=== PATIENT | male | born 1945 ===

== ENCOUNTER 2024-07-28 14:08 | Observation (INO) | payer MEDICARE, OTHER, SELFPAY ==
[2024-07-28] VITALS (17 sets, daily range): BP systolic 121–168; BP diastolic 53–128; PULSE 61–65; BMI 24.8; BMI 25.2
--- NOTE | 2024-07-28 10:30 | ED.GENMED ---
History of Present Illness
General
Chief Complaint: Dizziness
Source: patient and spouse
Exam Limitations: none
Time Seen by Provider: 07/28/24 10:17
Nursing documentation reviewed up to this point in time: agreed with
History of Present Illness
History of Present Illness:
The patient is a very pleasant 79-year-old man who reports that yesterday he experienced sudden onset of dizziness and difficulty walking. Patient reports the symptoms seem worse when he changes positions such as sitting to standing up. He reports
his symptoms were associated with nausea and vomiting. He denies headache, sore throat and fever. He denies vision changes. He reports he has never had dizziness like this before. Patient reports that it is not reproduced when he moves his head
from [id number]. Patient states he still feels dizzy and slightly nauseous. He denies chest pain or shortness of breath. His reports he recently had significant medication changes and is not sure if this is related.
Past History
Past History
ED Past Medical History: HTN and NIDDM
ED Past Surgical History: Other
Social History
Tobacco: Non-smoker
Alcohol: Other
Drug: None
Personal:
Living: with family
Employment: Retired
Family History
Family History: Other
Review of Systems
Review of Systems
Allergies reviewed?: Yes
All Other Systems: ROS reviewed and negative except as documented in HPI and ROS
Constitutional: Reports no symptoms
EENT: Reports no symptoms
Respiratory: Reports no symptoms
Cardiac: Reports no symptoms
ABD/GI: Reports nausea and vomiting
: Reports no symptoms
Musculoskeletal: Reports no symptoms
Skin: Reports no symptoms
Neurological: Reports dizzy
Endocrine: Reports no symptoms
Hematologic/Lymphatic: Reports no symptoms
Psychiatric: Reports no symptoms
Phy Exam
Physical Exam
Physical Exam:
Physical Exam
General: no apparent distress, not acutely ill
Neck: supple. no meningeal signs. normal psoterior pharynx
Heart: Sounds irregular.
Lungs: no acute respiratory distress. clear bilaterally
Abdomen: normal bowel sounds. not tender. no CVAT
Neuro: alert and oriented x 3. no focal neurological deficits. 5 out of 5 strength in all extremities. Normal [id number].
Skin: no rash
Psychiatric: well kept. interactive and cooperative
Extremities: no edema. no calf tenderness. negative homans. good distal pulses
Course
Orders/Labs/Results
Orders:
Orders
07/28/24 09:53
Electrocardiogram (*1) Urgent
Reason for Study: Vertigo / Dizzy
EKG- Treatment ONCE
07/28/24 10:25
CT Head W/o Iv Contrast Urgent
Comment:
Reason For Exam: dizziness
07/28/24 10:36
Complete Blood Count/With Diff Urgent
Comprehensive Metabolic Panel Urgent
Magnesium Urgent
Troponin I Urgent
07/28/24 11:15
0.9% Sodium Chloride 1000 ml [Nss] 1,000 ml IV BOLUS
Abnormal Lab Results
07/28/24
10:36
MCH 31.5 H pg
(27.0-31.0)
MPV 11.2 H fL
(7.4-10.4)
Absolute Monos (auto) 0.7 H 10^3/uL
(0.1-0.6)
Neutrophils % 76.7 H %
(42.2-75.2)
Lymphocytes % 13.7 L %
(20.5-51.1)
BUN 27 H mg/dl
(9-20)
Glucose 194 H mg/dl
(70-99)
07/28/24 10:36
07/28/24 10:36
Vital Signs
Initial and Last Documented VS:
Initial Vital Signs
Temp Pulse Resp BP Pulse Ox
97.5 F 34 18 142/62 98
07/28/24 09:58 07/28/24 09:58 07/28/24 09:58 07/28/24 09:58 07/28/24 09:58
Last Documented Vital Signs
Temp Pulse Resp BP Pulse Ox
98.0 F 67 18 131/82 96
07/28/24 10:04 07/28/24 11:00 07/28/24 11:00 07/28/24 11:00 07/28/24 11:00
MDM/Problems Addressed
Differential Diagnosis Includes:
Benign positional vertigo, orthostatic dizziness, CVA, symptomatic bradycardia
MDM/Problems Addressed:
Patient presents with acute dizziness, nausea and vomiting
Chronic conditions affecting care: HTN
Acute Exacerbation and/or Progression of Chronic Illness:
Given patient's history of hypertension, he is at increased risk of stroke
Acute Exacerbation and/or Progression of Chronic Illness: HTN
*Radiology
Radiology exam reviewed: radiology read reviewed
*Pulse Oximetry
Patient hypoxic: no
*EKG
Interpreted by ED Provider?: Yes
Interpretation: abnormal
Comparison EKG: no comparison EKG present
Rate: normal
Rhythm: sinus and PVC's
[place]: normal axis
Interval: normal interval
QRS Pattern: left bundle branch block (Partial left bundle branch block)
Ischemia: non-specific ST changes
*Rn Critical Care Interpretation
Rate: bradycardiac
Interpretation: abnormal
Rhythm: sinus and PVC's
*Critical Care Note
Total Time (30-74mins, 75-104mins- exclusive of procedures): Not Applicable
Data Reviewed
Source: patient and spouse
Patient Management
Discussion with other providers: Hospitalist
Escalation/DeEscalation of care consider admission/obs:
Patient may have vertigo, however, patient has frequent episodes of bradycardia in the 30s. Patient may have symptomatic bradycardia
ED Attending Note
-
Portions of this chart may have been created with voice recognition software.� Occasional wrong word or��sound alike� substitutions may have occurred due to the inherent limitations of voice recognition software.
Discharge Plan
Departure
Patient Disposition: Admit
Date of Disposition: 07/28/24
Time of Disposition: 12:05
Admit to: Telemetry
Presentation/result/management discussed w/ accepting MD/DO: Hospitalist
Discharge Problem:
Acute dizziness, Symptomatic bradycardia
Prescriptions:
No Action
acetaminophen 325 mg Tablet
650 mg PO Q6H PRN (Reason: Mild pain)
fluorouracil 5 % Cream
1 applic TOPICAL BID
omeprazole 40 mg Capsule,Delayed Release(Dr/Ec)
40 mg PO DAILY
triamcinolone acetonide [Kenalog] 0.1 % Cream
1 applic TOPICAL DAILY
Rx Instructions:
UP TO 15 DAYS/MONTH
ascorbic acid (vitamin C) 500 mg Tablet
500 mg PO DAILY
tamsulosin 0.4 mg Capsule
0.4 mg PO DAILY
metoprolol succinate 25 mg Tablet Extended Release 24 Hr
25 mg PO HS
lisinopril 40 mg Tablet
40 mg PO DAILY
Multivitamin 50 Plus Tablet
1 tab PO DAILY
dutasteride 0.5 mg Capsule
0.5 mg PO DAILY
rosuvastatin 20 mg Tablet
20 mg PO DAILY
Eliquis 5 mg Tablet
5 mg PO BID
Jardiance 25 mg Tablet
25 mg PO DAILY
Referrals:
Meaghan Dawn MD [Family Provider] -
Interventions
Interventions:
*Risk Screen - Suicide Last Done: 07/28/24 10:04
*General Assessment Last Done: 07/28/24 10:28
*Neglect/Abuse Screening Last Done: 07/28/24 10:04
ED- Fall Risk Assessment Last Done: 07/28/24 10:28
*ED COVID-19 Vaccine History Last Done: 07/28/24 10:28
ED- Neurological Assessment Last Done: 07/28/24 10:28
ED- Cardiac Assessment Last Done: 07/28/24 10:28
ED Swallowing Screen Last Done: 07/28/24 11:10
Discharge Date and Time
Print Language: BOLIVIAN
[2024-07-28 10:48] LABS: % Basophils 0.6 % (0-2); % Eosinophils 0.6 % (0-6); % Immature Granulocytes 0.4 % (0-0.5); % Lymphocytes 13.7 % (20.5-51.1); % Neutrophils 76.7 % (42.2-75.2); Absolute Basophils 0.1 10^3/uL (0-0.2); Absolute Eosinophils 0.1 10^3/uL (0-0.7); Absolute Lymphocytes 1.2 10^3/uL (1.2-3.4); Absolute Monocytes 0.7 10^3/uL (0.1-0.6); Absolute Neutrophils 6.5 10^3/uL (1.4-6.5); Hematocrit 47.5 % (39.0-52.0); Hemoglobin 16.2 g/dL (13.0-18.0); Mean Corp Hgb Conc. 34.1 g/dL (33.0-37.0); Mean Corpuscular Hgb 31.5 pg (27.0-31.0); Mean Corpuscular Volume 92.2 fL (80.0-94.0); Mean Platelet Volume 11.2 fL (7.4-10.4); Nucleated Red Blood Cells % 0 % (-); Platelet Count 135 10^3/uL (130-400); Red Blood Cell Count 5.15 10^6/uL (4.70-6.10); Red Cell Dist. Width 13.5 % (11.5-14.5); White Blood Cell Count 8.5 10^3/uL (4.8-10.8)
[2024-07-28 11:01] LABS: ALT (SGPT) 20 U/L (0-50); AST (SGOT) 22 U/L (17-59); Albumin 4.4 g/dl (3.5-5.0); Alkaline Phosphatase 72 U/L (38-126); Blood Urea Nitrogen 27 mg/dl (9-20); Calcium 9.9 mg/dl (8.4-10.2); Carbon Dioxide 24 mmol/L (22-30); Chloride 103 mmol/L (98-107); Estimated Creatinine Clearance 59 ml/min; Glucose 194 mg/dl (70-99); Magnesium 1.6 mg/dl (1.6-2.3); Potassium 4.1 mmol/L (3.5-5.1); Sodium 143 mmol/L (135-145); Total Protein 6.9 g/dl (6.3-8.2); eGFR > 60.00
[2024-07-28 11:12] LABS: Troponin I 0.012 ng/ml
[2024-07-28] MEDS: NSS 1000 IV (11:50)
--- NOTE | 2024-07-28 13:53 | HPS.HSE ---
Addendum entered and electronically signed by Ron Fonseca MD 07/29/24 13:52:
I personally performed a history and physical exam of the patient and discussed management with the resident. I reviewed the resident's note and agree with the documented findings and plan of care HPI/CC.
Patient is 79-year-old male with past medical history of atrial fibrillation on Eliquis, essential hypertension, [id number]-wtfrehmke respirators came to ER with new onset of dizziness which has been going on for last 24 to 48 hours. Patient had
associated nausea and vomiting. Denies of having any previous episodes of similar issues in the past. No reported history of ear injury/infection/sore throat. Denies any associated double vision/ataxia. No previous history of stroke. Patient
has been compliant with home medication.
HEENT: No pallor, cyanosis, or jaundice. Throat clear.
NECK: Supple. No JVD.
RESPIRATORY: Lungs clear to auscultation.
CVS: S1, S2 normal. RRR. No murmur, rub or gallop.
ABDOMEN: Soft, non-tender. No distension. BS+/normal.
EXTREMITIES: No peripheral cyanosis or edema.
LICENSED MASSAGE THERAPIST: AOx3. No focal deficits.
Dizziness
Presumed vertigo
-Patient have history of sensorineural hearing loss and can have possible vertigo, BPPV is another differential diagnosis
-No nystagmus/double vision, no other neurological signs to suspect true posterior circulation stroke
-Patient had some episode of bradycardia, hold metoprolol for now. monitor on telemetry and will see if clinically correlate with dizziness episode
-Check orthostatic vitals as well
-Provide meclizine/empiric IV steroids
-PT OT evaluation with vestibular assessment in the morning
NIDDM
-Maintain on home regimen of Janumet
-Add insulin sliding scale/Accu-Chek if per glucose uncontrolled with steroids
Full code
Original Note:
Family Physician
-
Family Physician: Meaghan Dawn
Chief Complaint
-
Dizziness
History of Present Illness
This is a 79-year-old male patient past medical history of hypertension, NIDDM, BPH, foot drop and history of atrial fibrillation s/p ablation who presents to the ED with concerns of dizziness and nausea. His dizziness started yesterday morning
when he got up from bed and walked around. His dizziness lasted for around 1 minute and was associated with nausea and vomiting where he had 2 episodes of vomiting with no blood thus far. He also felt unsteady while walking due to the dizziness but
denied any falls. He states that his dizziness gets worse when he goes from a sitting to standing up position. He denies any vision changes, loss of consciousness, tinnitus or URTI symptoms (did have COVID 3 weeks ago). He also denies any chest
pain, SOB or palpitations.
He recently moved to the area and states that he was lifting heavy boxes the day prior. He also states that he recently saw his PCP last week who made changes to his diabetic medication.
His EKG in the ED showed multiple PVCs. He was initially bradycardic in the ED with HR in the 30s, but at time of examination heart rate was stable in the 70s.
He follows with business continuity director .
Medical History
Past Medical History
Past Medical History: Reports Arrhythmia (Atrial fibrillation), HTN, NIDDM and Other (Foot drop, cyst on kidney)
Past Surgical History: Reports Other (Ablation 5 years ago for A-fib)
Social History
Tobacco: Non-smoker
Drug: None
Personal:
Living: With Family
Family History
Family History: CAD
Allergies / Home Medications
Allergies reflects when Allergies were last updated in [facility].
Home Medications with original date entered in [facility]
Allergy/Medication List:
Allergies
Allergy/AdvReac Type Severity Reaction Status Date / Time
No Known Allergies Allergy Verified 07/28/24 10:08
Home Medications
apixaban 5 mg tablet (Eliquis) 5 mg PO BID 07/28/24
ascorbic acid (vitamin C) 500 mg tablet 500 mg PO DAILY 07/28/24
cyanocobalamin (vitamin B-12) 500 mcg tablet 500 mcg PO DAILY 07/28/24
dutasteride 0.5 mg capsule 0.5 mg PO DAILY 07/28/24
empagliflozin 25 mg tablet (Jardiance) 25 mg PO DAILY 07/28/24
lisinopril 40 mg tablet 40 mg PO DAILY 07/28/24
metoprolol succinate 25 mg tablet,extended release 24 hr 25 mg PO HS 07/28/24
szyvygfznoeu-hrkdnezi-auahsz tablet (Multivitamin 50 Plus tablet) 1 tab PO DAILY 07/28/24
omeprazole 40 mg capsule,delayed release 40 mg PO DAILY 07/28/24
rosuvastatin 20 mg tablet 20 mg PO QPM 07/28/24
sitagliptin phos 50 mg-metformin ER 1,000 mg tablet,extend rel 24h mp (Janumet XR) 2 tab PO DAILY 07/28/24
tamsulosin 0.4 mg capsule 0.4 mg PO DAILY 07/28/24
Review of Systems
-
Constitutional: Reports No Symptoms
EENT: Reports No Symptoms
Cardiac: Reports No Symptoms
Abdomen/GI: Reports Nausea
Skin: Reports No Symptoms
Neurological: Reports Dizzy
Psych: Reports No Symptoms
Physical Exam
Vital Signs
Vital Signs
Temp Pulse Resp BP Pulse Ox
98.0 F 64 17 121/65 95
07/28/24 10:04 07/28/24 13:30 07/28/24 13:30 07/28/24 13:30 07/28/24 13:30
Physical Exam
General: No Apparent Distress
HEENT: NormoCephalic
Respiratory: Clear
Cardiac: S1/S2 and Regular Rhythm
GI: Soft, Non Tender and Non Distended
Musculoskeletal: No Clubbing and No Edema
Skin: Warm and Dry
Neuro: Awake, Alert and Oriented
Psych: Calm
Laboratory Results
-
07/28/24 10:36
07/28/24 10:36
Laboratory Results
Total Bilirubin 1.0 mg/dl (0.2-1.3) 07/28/24 10:36
AST 22 U/L (17-59) 07/28/24 10:36
ALT 20 U/L (0-50) 07/28/24 10:36
Alkaline Phosphatase 72 U/L (38-126) 07/28/24 10:36
Troponin I 0.012 ng/ml 07/28/24 10:36
Impression/Plan
-
IMPRESSION: This is a 79-year-old male patient past medical history of hypertension, NIDDM, BPH, foot drop and history of atrial fibrillation s/p ablation who presents to the ED with concerns of dizziness, vomiting and nausea. His HR in 30s in the
ED and ER EKG showed multiple PVCs.
ASSESSMENT:
Dizziness
Bradycardia
Conditions MANAGER PROVIDER RELATIONS:
HTN
HLD
BPH
Foot drop
Hx of atrial fibrillation s/p ablation
PLAN:
#Dizziness possibly due to BPPV vs labyrinthitis vs hypoglycemia
� ER EKG: Multiple PVCs, incomplete left bundle block
� CT head: Mild atrophy, minimal periventricular small vessel ischemic disease
�Physical therapy for vestibular assessment
� Dexamethasone 4 Mg every 12 ordered for possible vestibular etiology
� Meclizine as needed
� Orthostatic vitals Q8H
#Bradycardia
� Hold metoprolol
� Order TSH, T3, T4
- Admit for observation for telemetry
#Hx of Atrial Fibrillation s/p ablation
- Continue Eliquis
#Essential HTN
� Continue lisinopril
#Hyperlipidemia
� Continue rosuvastatin
#NIDDM
� Continue Jardiance, Janumet
#BPH
� Continue Flomax, dutasteride
DVT PPx: SCDs
Full code
[2024-07-28 17:05] LABS: Free T4 1.04 ng/dl (0.78-2.19)
[2024-07-28 17:19] LABS: TSH 0.81 uIU/ml (0.47-4.68)
[2024-07-28] MEDS: CRESTOR 20 MG PO (18:07)
[2024-07-28] MEDS: DECADRON 4 MG PO (19:43)
[2024-07-28] MEDS: ELIQUIS 5 MG PO (19:43)
[2024-07-28 21:53] LABS: Hepatitis C Antibody Negative (Negative)
[2024-07-29 02:57] VITALS: BP 163/84
[2024-07-29 06:12] LABS: Blood Urea Nitrogen 25 mg/dl (9-20); Calcium 9.4 mg/dl (8.4-10.2); Carbon Dioxide 22 mmol/L (22-30); Chloride 104 mmol/L (98-107); Estimated Creatinine Clearance 72 ml/min; Glucose 182 mg/dl (70-99); Potassium 4.5 mmol/L (3.5-5.1); Sodium 140 mmol/L (135-145); eGFR > 60.00
[2024-07-29 06:29] LABS: Hematocrit 44.2 % (39.0-52.0); Hemoglobin 15.2 g/dL (13.0-18.0); Mean Corp Hgb Conc. 34.4 g/dL (33.0-37.0); Mean Corpuscular Hgb 31.4 pg (27.0-31.0); Mean Corpuscular Volume 91.3 fL (80.0-94.0); Mean Platelet Volume 11.1 fL (7.4-10.4); Platelet Count 126 10^3/uL (130-400); Red Blood Cell Count 4.84 10^6/uL (4.70-6.10); Red Cell Dist. Width 13.3 % (11.5-14.5); White Blood Cell Count 6.2 10^3/uL (4.8-10.8)
[2024-07-29 07:20] VITALS: BP 138/90; BP 148/71; BP 167/87; PULSE 47; PULSE 60; PULSE 68
--- NOTE | 2024-07-29 07:52 | W.PN.HOSP.TC ---
Addendum entered and electronically signed by Ron Fonseca MD 07/29/24 13:53:
I saw and evaluated the patient. I reviewed the resident�s note and agree with findings and plan as documented in the resident�s note.
Patient have vertigo symptoms from BPPV
Positive [place]-Hallpike maneuver by physical therapy assessment
Patient significantly better after Cedric's maneuver
Patient able to walk around without significant issues
Patient instructed to use meclizine as needed for symptomatic care
Patient to follow-up with vestibular therapy center for further evaluation and treatment as needed
Original Note:
Today's Communication/Plan
-
Cardiology outpatient follow up
Vestibular Therapy outpatient
Restart metoprolol
Discharge today
Assessment / Plan
Assessment / Plan
IMPRESSION: This is a 79-year-old male patient past medical history of hypertension, NIDDM, BPH, foot drop and history of atrial fibrillation s/p ablation who presents to the ED with concerns of dizziness, vomiting and nausea. His HR in 30s in the
ED and ER EKG showed multiple PVCs.
ASSESSMENT:
Dizziness
Bradycardia
Conditions FORK TRUCK DRIVER:
HTN
HLD
BPH
Foot drop
Hx of atrial fibrillation s/p ablation
PLAN:
#Dizziness possibly due to BPPV vs labyrinthitis vs hypoglycemia
� ER EKG: Multiple PVCs, incomplete left bundle block
� CT head: Mild atrophy, minimal periventricular small vessel ischemic disease
� Physical therapy: + for BPPV to R side with Hallpike and Cedric maneuver performed with success
-Vestibular therapy outpatient recommended
� Discontinue Dexamethasone
� Meclizine as needed
� Orthostatic vitals Q8H- had one out of two readings suggestive of orthostatic hypotension but not likely diagnosis
- Discharge home today
#Bradycardia
� Hold metoprolol, restart on discharge
� Normal TSH, T4, very mildly low T3
-Advised cardiology f/u after discharge
#Hx of Atrial Fibrillation s/p ablation
- Continue Eliquis
#Essential HTN
� Continue lisinopril
#Hyperlipidemia
� Continue rosuvastatin
#NIDDM
� Continue Jardiance, Janumet
-Managed with insulin sliding scale
#BPH
� Continue Flomax, dutasteride
DVT PPx: SCDs
Full code
Anticipated Discharge: Today
Subjective/Interval History
-
Date of Service: July 29, 2024
Patient still continues to feel mildly nauseous but does have less dizziness after taking meclizine.
Objective Data
-
Labs:
Laboratory Results
07/29/24
05:28
WBC 6.2
Hgb 15.2
Hct 44.2
Plt Count 126 L
Sodium 140
Potassium 4.5
Chloride 104
Carbon Dioxide 22
BUN 25 H
Creatinine 0.9
Glucose 182 H
Calcium 9.4
Vital Signs:
Vital Signs
Temp Pulse Resp BP Pulse Ox
97.6 F 60 16 163/84 96
07/29/24 02:57 07/29/24 02:57 07/29/24 02:57 07/29/24 02:57 07/29/24 02:57
I&O
07/28/24 07/29/24 07/30/24
06:59 06:59 06:59
Intake Total 240 / 240
Balance 240 / 240
Review of Systems
-
All other systems: Reviewed and negative
Physical Exam
-
General: No Apparent Distress
HEENT: Normocephalic
Respiratory: Clear to Auscultation
Cardiac: Regular Rhythm and S1/S2
GI: Soft, Nontender and Nondistended
Musculoskeletal: No Cyanosis and No Edema
Skin: Warm and Dry
Neuro: Awake, Alert and Oriented
Psych: Calm
[2024-07-29] MEDS: ZESTRIL 40 MG PO (07:56)
[2024-07-29] MEDS: DECADRON 4 MG PO (07:56)
[2024-07-29] MEDS: FARXIGA 10 MG PO (07:56)
[2024-07-29] MEDS: FLOMAX 0.4 MG PO (07:56)
[2024-07-29] MEDS: VITAMIN C 500 MG PO (07:56)
[2024-07-29] MEDS: PROTONIX 40 MG PO (07:56)
[2024-07-29] MEDS: THERAGRAN 1 TABLET PO (07:56)
[2024-07-29] MEDS: PROSCAR 5 MG PO (07:57)
[2024-07-29] MEDS: VITAMIN B-12 500 MCG PO (07:57)
[2024-07-29] MEDS: ELIQUIS 5 MG PO (07:57)
[2024-07-29] MEDS: JANUVIA 100 MG PO (07:57)
[2024-07-29] MEDS: GLUCOPHAGE XR EXTENDED RELEASE 2000 MG PO (07:57)
[2024-07-29] MEDS: ANTIVERT 25 MG PO (08:04)
[2024-07-29 11:12] VITALS: BP 130/69
[2024-07-29 11:36] LABS: Glucose - Point of Care 241 mg/dl (70-99)
--- NOTE | 2024-07-29 12:49 | CM ---
integrated campaign manager reviewed patient's chart and patient was admitted under OBS, SIM letter provided to patient. Patient lives with spouse in a multilevel home with elevator, patient is independent with adl's and ambulation, no dme.
Pharmacy: [facility]
PCP: Meaghan Dawn
Plan; Home today, plan is for outpatient vestibular therapy, patient and spouse are aware.
--- NOTE | 2024-07-29 13:37 | W.DCSUMMARY ---
Discharge Summary
Discharge Data
Date of Admission: 07/28/24
Date of Discharge: 07/29/24
-
Pending Results: No
Hospital Course
Discharging Physician : Dr. Ron Fonseca,
Disposition : Home
Primary care physician : Dr.Susan Dawn
Principal Discharge diagnosis : Benign Paroxysmal Positional Vertigo
Chronic Discharge diagnosis : Atrial fibrillation s/p ablation, HTN, NIDDM, Foot drop, cyst on kidney
Hospital Course :
1. Dizziness: He presented with dizziness and nausea and was started on meclizine and dexamethasone for possible vestibular etiology. Physical therapy consult placed. Imaging and labwork was without significant findings (only T3 very mildly low).
Patient started to mildly improve after meclizine. Physical therapy findings: Positive BPPV with Hallpike and Cedric's maneuver successful. Patient felt much improved after therapy. Advised he follow-up with vestibular therapy outpatient.
2. Bradycardia: He presented with bradycardia initially with HR in 30s, and then later stabilized to 60s�70s. Metoprolol was held and then restarted upon discharge. EKG during observation. Showed multiple PVCs. Advise cardiology follow-up
outpatient.
3. NIDDM: He continued home oral medication. Insulin sliding scale started in hospital. Discharged with home oral medication.
4. All other chronic medical issues: Stable during admission.
Patient discharged today to home with new PCP information provided for [facility].
Important imaging findings :
CT Head 07/28: Mild atrophy.Minimal periventricular small vessel ischemic disease.
Discharge Plan
-
Patient Disposition: Home (Routine Discharge)
Discharge Diagnosis/Procedures: Benign Paroxysmal Positional Vertigo
Diet: Diabetic, Carb Controlled
Activity: As tolerated
Driving Restrictions: As prior to admission
Other Services: PT
Referrals:
Meaghan Dawn MD [Family Provider] -
Prescriptions:
New
meclizine 25 mg Tablet
25 mg PO Q6HPRN PRN (Reason: Dizziness) 30 Days Qty: 30 0RF
Continued
omeprazole 40 mg Capsule,Delayed Release(Dr/Ec)
40 mg PO DAILY
ascorbic acid (vitamin C) 500 mg Tablet
500 mg PO DAILY
tamsulosin 0.4 mg Capsule
0.4 mg PO DAILY
metoprolol succinate 25 mg Tablet Extended Release 24 Hr
25 mg PO HS
lisinopril 40 mg Tablet
40 mg PO DAILY
Multivitamin 50 Plus Tablet
1 tab PO DAILY
dutasteride 0.5 mg Capsule
0.5 mg PO DAILY
rosuvastatin 20 mg Tablet
20 mg PO QPM
Eliquis 5 mg Tablet
5 mg PO BID
Jardiance 25 mg Tablet
25 mg PO DAILY
cyanocobalamin (vitamin B-12) 500 mcg Tablet
500 mcg PO DAILY
Janumet XR 50-1,000 mg Tablet, Er Multiphase 24 Hr
2 tab PO DAILY
Discharge Orders:
Discharge Patient (As Directed); Ordered 07/29/24
Ordered By: Aparna Borrego
Discharge Date and Time
Discharge Date/Time: 07/29/24 13:31
Print Language: POLISH
== END 2024-07-29 13:31 | disposition home or self-care (01) ==
LOC: 4 WEST ACU 14:08
PROVIDERS: Student in an Organized Health Care Education/Training Program; ADMITTING PHYSICIAN Hospitalist; EMERGENCY PHYSICIAN Emergency Medicine; FAMILY PHYSICIAN Family Medicine
DX: H81.10 Benign paroxysmal vertigo, unspecified ear (principal); R26.2 Difficulty in walking, not elsewhere classified; R11.2 Nausea with vomiting, unspecified; I10 Essential (primary) hypertension; E11.9 Type 2 diabetes mellitus without complications; I49.3 Ventricular premature depolarization; R00.1 Bradycardia, unspecified; I48.91 Unspecified atrial fibrillation; E78.5 Hyperlipidemia, unspecified; N40.0 Benign prostatic hyperplasia without lower urinary tract symptoms; G31.9 Degenerative disease of nervous system, unspecified; I67.82 Cerebral ischemia; I49.1 Atrial premature depolarization; Z79.01 Long term (current) use of anticoagulants; Z79.84 Long term (current) use of oral hypoglycemic drugs
CPT/HCPCS: 70450; 80048; 80053; 82962; 83735; 84439; 84443; 84481; 84484; 85025; 85027; 86803; 93005; 96360; 97163; 99285; G0378

== ENCOUNTER 2024-08-27 10:58 | Outpatient (RCR) | payer MEDICARE, OTHER, SELFPAY | END 2024-08-27 23:59 | disposition home or self-care (01) | LOC: RPT 10:58 | PROVIDERS: ATTENDING PHYSICIAN Hospitalist; FAMILY PHYSICIAN Family Medicine | DX: R42 Dizziness and giddiness (principal); Z73.6 Limitation of activities due to disability | CPT/HCPCS: 97112; 97162 ==

== ENCOUNTER 2024-09-08 10:08 | Outpatient (RCR) | payer MEDICARE, OTHER, SELFPAY | END 2024-09-24 06:41 | disposition home or self-care (01) | LOC: RPT 10:08 | PROVIDERS: ATTENDING PHYSICIAN Hospitalist; FAMILY PHYSICIAN Family Medicine | DX: R42 Dizziness and giddiness (principal); Z73.6 Limitation of activities due to disability | CPT/HCPCS: 97112 ==

== ENCOUNTER 2025-02-11 12:51 | Emergency (ER) | payer MEDICARE, OTHER, SELFPAY ==
[2025-02-11 12:57] VITALS: BP 186/84
[2025-02-11 14:01] LABS: % Basophils 0.6 % (0-2); % Eosinophils 2.6 % (0-6); % Immature Granulocytes 0.3 % (0-0.5); % Lymphocytes 23.2 % (20.5-51.1); % Monocytes 11.4 % (1.7-9.3); % Neutrophils 61.9 % (42.2-75.2); Absolute Eosinophils 0.2 10^3/uL (0-0.7); Absolute Lymphocytes 1.5 10^3/uL (1.2-3.4); Absolute Monocytes 0.7 10^3/uL (0.1-0.6); Hematocrit 42.4 % (39.0-52.0); Hemoglobin 14.4 g/dL (13.0-18.0); Mean Corpuscular Hgb 31.6 pg (27.0-31.0); Mean Corpuscular Volume 93.2 fL (80.0-94.0); Mean Platelet Volume 10.6 fL (7.4-10.4); Nucleated Red Blood Cells % 0 % (-); Platelet Count 145 10^3/uL (130-400); Red Blood Cell Count 4.55 10^6/uL (4.70-6.10); Red Cell Dist. Width 13.2 % (11.5-14.5); White Blood Cell Count 6.4 10^3/uL (4.8-10.8)
--- NOTE | 2025-02-11 14:11 | ED.GENMED ---
History of Present Illness
General
Chief Complaint: Vascular Symptoms
Source: patient
Time Seen by Provider: 02/11/25 13:33
History of Present Illness
History of Present Illness:
79-year-old male with past medical history of atrial fibrillation, hypertension and [id number] diabetes presenting to the emergency department for evaluation of worsening pain and swelling to his right lower extremity after developing a
DVT 6 days ago, had an outpatient ultrasound at a separate facility. Patient and are not sure as to what veins were affected. They note that patient was already on Eliquis prior to developing the DVT states their primary care provider told
them to take an 81 mg aspirin in addition to the Eliquis. notes that patient's right lower extremity seems to be a little bit dusky or in appearance however patient is not experiencing any numbness or paresthesia, motor dysfunction, chest
pain, shortness of breath, cough, hemoptysis or any other concerns.
Past History
Past History
ED Past Medical History: Arrthythmia, HTN and NIDDM
ED Past Surgical History: Orthopedic and Other
Social History
Tobacco: Non-smoker
Alcohol: Other
Drug: None
Personal:
Living: with family
Employment: Retired
Family History
Family History: Other
Review of Systems
Review of Systems
All Other Systems: ROS reviewed and negative except as documented in HPI and ROS
Phy Exam
Physical Exam
Physical Exam:
GENERAL: Alert , in no apparent distress
EYE: conjunctiva clear
NECK: Supple
ENT: o/p clr, mmm.
CARDIAC: Regular rate and rhythm
LUNGS: Clear breath sounds bilaterally, no acute respiratory distress, no wheezes/rales/rhonchi
NEUROLOGICAL: Alert and oriented
SKIN: Warm and dry, skin intact.
MUSCULOSKELETAL: Right lower extremity: There is moderate edema of the distal lower extremity, 1+ pitting edema, somewhat dusky in appearance but patient does have palpable pedal and tibial pulse. Cap refill less than 2 seconds. Patient allows for
full active and passive range of motion of the entirety of the right lower extremity.
PSYCH: Normal and appropriate interaction.
Scores
Heart Failure Risk
Heart Failure Risk Score: Not Applicable
Heart Score for Chest Pain Patients
STEMI patient?: Not applicable
Withdrawal Assessment of Alcohol
Withdrawal Assessment Completed?: Not applicable
Course
Orders/Labs/Results
Orders:
Orders
02/11/25 13:35
US Periph Venous LOWER Ext RT Urgent
Comment:
Reason For Exam: known DVT, worsening pain
02/11/25 13:52
Basic Metabolic Panel Urgent
Complete Blood Count/With Diff Urgent
PTT Urgent
Prothrombin Time Urgent
02/11/25 14:56
Faustino Wrap Right-Treatment ONCE
Abnormal Lab Results
02/11/25
13:52
RBC 4.55 L 10^6/uL
(4.70-6.10)
MCH 31.6 H pg
(27.0-31.0)
MPV 10.6 H fL
(7.4-10.4)
Absolute Monos (auto) 0.7 H 10^3/uL
(0.1-0.6)
Monocytes % 11.4 H %
(1.7-9.3)
PT 15.4 H Sec
(11.4-14.6)
BUN 21 H mg/dl
(9-20)
Glucose 224 H mg/dl
(70-99)
02/11/25 13:52
02/11/25 13:52
Vital Signs
Initial and Last Documented VS:
Initial Vital Signs
Temp Pulse Resp BP Pulse Ox
97.6 F 74 16 186/84 98
02/11/25 12:57 02/11/25 12:57 02/11/25 12:57 02/11/25 12:57 02/11/25 12:57
Last Documented Vital Signs
Temp Pulse Resp BP Pulse Ox
97.6 F 68 22 186/84 97
02/11/25 12:57 02/11/25 13:45 02/11/25 13:45 02/11/25 12:57 02/11/25 13:45
MDM/Problems Addressed
Differential Diagnosis Includes:
Worsening DVT, SVT, given the patient has intact pulses I have less concern for PAD, no symptoms to suggest infectious etiology
MDM/Problems Addressed:
79-year-old male presenting to the ER for evaluation of worsening pain and swelling to the right lower extremity. Was reportedly diagnosed with a DVT to the right leg 6 days ago, had already been on Eliquis so was told to take an additional 81 mg
of aspirin which patient reports doing. He reports that he is compliant with his Eliquis daily. There is significant edema to the right lower extremity compared to the left. unfortunately patient and do not have the ultrasound report
available. Will resend patient for ultrasound study to evaluate. I anticipate if patient does not fact have DVT and failed treatment of Eliquis he will require admission for heparin and initiation of Coumadin. Disposition pending.
Chronic conditions affecting care: Arrhythmia
*Radiology
Radiology exam reviewed: radiology read reviewed
*Pulse Oximetry
Patient hypoxic: no
*Critical Care Note
Total Time (30-74mins, 75-104mins- exclusive of procedures): Not Applicable
Patient Management
Discussion with other providers: PCP
Escalation/DeEscalation of care consider admission/obs:
Patient's ultrasound shows no sonographic evidence for DVT within the right lower extremity. There is however a complex collection within the right posterior calf most likely representing a hematoma. I reviewed these results with the patient and
patient now tells me that this did initially start as a nontraumatic bruise to the right lower extremity that he is unsure as to how it began. I also contacted the patient's primary care provider to see if they have the ultrasound report from the
facility patient had ultrasound done but they unfortunately did not. They do see that patient was evaluated at their office 6 days ago but there is no other history or recommendations noted in the chart. I do suspect the discoloration to the
patient's lower extremities likely related to the hematoma/bruising and not related to peripheral vascular disease. At this time advised continued compression, ice and elevation. Patient will follow-up with primary care provider. He can continue
his Eliquis as scheduled. Aware of return precautions to the ER.
ED Attending Note
-
Portions of this chart may have been created with voice recognition software.� Occasional wrong word or��sound alike� substitutions may have occurred due to the inherent limitations of voice recognition software.
Discharge Plan
Departure
Patient Disposition: Home (Routine Discharge)
Date of Disposition: 02/11/25
Time of Disposition: 14:56
Patient with high blood pressure during this ER visit?: Yes
Discharge Problem:
Hematoma of right lower leg
Instructions: Hematoma
Prescriptions:
No Action
omeprazole 40 mg Capsule,Delayed Release(Dr/Ec)
40 mg PO DAILY
ascorbic acid (vitamin C) 500 mg Tablet
500 mg PO DAILY
tamsulosin 0.4 mg Capsule
0.4 mg PO DAILY
metoprolol succinate 25 mg Tablet Extended Release 24 Hr
25 mg PO HS
lisinopril 40 mg Tablet
40 mg PO DAILY
Multivitamin 50 Plus Tablet
1 tab PO DAILY
dutasteride 0.5 mg Capsule
0.5 mg PO DAILY
rosuvastatin 20 mg Tablet
20 mg PO QPM
Eliquis 5 mg Tablet
5 mg PO BID
Jardiance 25 mg Tablet
25 mg PO DAILY
cyanocobalamin (vitamin B-12) 500 mcg Tablet
500 mcg PO DAILY
Janumet XR 50-1,000 mg Tablet, Er Multiphase 24 Hr
2 tab PO DAILY
meclizine 25 mg Tablet
25 mg PO Q6HPRN PRN (Reason: Dizziness) 30 Days Qty: 30 0RF
Referrals:
Meaghan Dawn MD [Family Provider] -
Interventions
Interventions:
*Risk Screen - Suicide Last Done: 02/11/25 12:57
*General Assessment Last Done: 02/11/25 13:32
*Neglect/Abuse Screening Last Done: 02/11/25 12:57
*ED- Fall Risk Assessment Last Done: 02/11/25 13:32
*ED COVID-19 Vaccine History Last Done: 02/11/25 13:32
*Nursing Disposition Last Done: 02/11/25 15:10
ED- Cardiac Assessment Last Done: 02/11/25 13:36
ED- Pulmonary Assessment Last Done: 02/11/25 13:36
ED-Peripheral Vascular Assessment Last Done: 02/11/25 13:36
ED-Skin Assessment Last Done: 02/11/25 13:36
Discharge Date and Time
Discharge Date/Time: 02/11/25 15:10
Print Language: TONGAN
[2025-02-11 14:19] LABS: INR 1.17; PT 15.4 Sec (11.4-14.6)
[2025-02-11 14:20] LABS: APTT 33.6 Sec (23.4-35.0); Blood Urea Nitrogen 21 mg/dl (9-20); Calcium 9.7 mg/dl (8.4-10.2); Carbon Dioxide 27 mmol/L (22-30); Chloride 105 mmol/L (98-107); Glucose 224 mg/dl (70-99); Potassium 4.5 mmol/L (3.5-5.1); Sodium 141 mmol/L (135-145); eGFR > 60.00
== END 2025-02-11 15:10 | disposition home or self-care (01) ==
LOC: EMR 12:51
PROVIDERS: Physician Assistant Medical; EMERGENCY PHYSICIAN Student in an Organized Health Care Education/Training Program; FAMILY PHYSICIAN Family Medicine
DX: S80.11XA Contusion of right lower leg, initial encounter (principal); R60.9 Edema, unspecified; X58.XXXA Exposure to other specified factors, initial encounter; I48.91 Unspecified atrial fibrillation; I10 Essential (primary) hypertension; E11.9 Type 2 diabetes mellitus without complications; Z79.01 Long term (current) use of anticoagulants; Z86.718 Personal history of other venous thrombosis and embolism
CPT/HCPCS: 99284; 80048; 85025; 85610; 85730; 93971